=== PATIENT | female | born 1970 | race Caucasian/White ===

== ENCOUNTER 2020-12-27 16:15 | Emergency (ER) | payer OTHER ==
[~2020-12-27 16:15] MED LIST: CYCLOBENZAPRINE10 MG PO; IBUPROFEN800 MG PO; NAPROXEN500 MG PO; ONDANSETRON ODT4 MG SL
== END 2020-12-27 18:40 | disposition home or self-care (01) ==
LOC: FER 16:15
DX: M79.662 Pain in left lower leg (principal); E78.5 Hyperlipidemia, unspecified; Z88.0 Allergy status to penicillin; Z79.899 Other long term (current) drug therapy
CPT/HCPCS: 93971

== ENCOUNTER 2021-02-14 14:16 | Emergency (ER) | payer OTHER ==
[2021-02-14 17:21] LABS: BASOPHIL 0.6 % (0-2); EOSINOPHIL 0.9 % (0-5); HCT 47.1 % (37.0-47.0); HGB 15.6 g/dl (12.5-16.0); LYMPHOCYTE 27.1 % (15-48); MCH 29.9 pg (25.0-31.0); MCHC 33.1 g/dL (32.0-36.0); MCV 90.4 fL (78.0-100.0); MONOCYTE 7.7 % (0-12); MPV 8.7 fL (6.0-9.5); NEUTROPHIL 63.2 % (41-80); NRBC 0; PLT 365 K/uL (150-400); RBC 5.21 M/uL (4.20-5.40); RDW 13.7 % (11.5-14.0); WBC 13.3 K/uL (4.0-10.5)
[2021-02-14 17:35] LABS: INR 0.93 (0.9-1.2); PROTHROMBIN TIME 11.8 SECONDS (11.4-13.6); PTT 34.6 SECONDS (22.2-34.7)
[2021-02-14 17:47] LABS: ALBUMIN 3.8 g/dL (3.4-5.0); BILIRUBIN - TOTAL 0.4 mg/dL (0.2-1.0); BUN/CREAT RATIO (CALC) 9.5 RATIO; CREATININE 0.84 mg/dL (0.51-0.95); GLOBULIN (CALCULATION) 4.1 g/dL; POTASSIUM 4.1 mmol/L (3.5-5.1); TOTAL PROTEIN 7.9 g/dL (6.4-8.2)
[2021-02-14] MEDS ORDERED: PROTONIX 40MG T40 MG PO (19:23)
== END 2021-02-14 19:37 | disposition home or self-care (01) ==
LOC: FER 14:16
PROVIDERS: Emergency Medicine
DX: R07.2 Precordial pain (principal); I10 Essential (primary) hypertension; F17.210 Nicotine dependence, cigarettes, uncomplicated; Z88.0 Allergy status to penicillin
CPT/HCPCS: 36415; 71045; 80053; 84484; 85025; 85610; 85730; 93005

== ENCOUNTER 2022-05-06 18:06 | Emergency (ER) | payer MEDICAID ==
[~2022-05-06 18:06] MED LIST changes: +PROTONIX 40MG T40 MG PO
== END 2022-05-06 20:14 | disposition home or self-care (01) ==
LOC: FER 18:06
DX: R51.9 Headache, unspecified (principal); F17.200 Nicotine dependence, unspecified, uncomplicated; Z88.0 Allergy status to penicillin; Z28.311 Partially vaccinated for COVID-19
CPT/HCPCS: 70450; J1885